=== PATIENT | female | born 1980 | race Two or more races ===

== ENCOUNTER 2020-05-23 12:10 | Emergency (ER) | payer BC, MEDICAID ==
[~2020-05-23] VITALS: Ht 170.2 cm; Wt 90.7 kg
[2020-05-23 12:21] VITALS: BP 139/83
== END 2020-05-23 13:32 | disposition home or self-care (01) ==
LOC: ER 12:10
DX: F41.1 Generalized anxiety disorder (principal); F31.9 Bipolar disorder, unspecified

== ENCOUNTER 2023-01-28 18:14 | Emergency (ER) | payer BC ==
[~2023-01-28] VITALS: Ht 170.2 cm; Wt 90.5 kg
[2023-01-28 20:47] VITALS: BP 142/87
== END 2023-01-28 20:49 | disposition home or self-care (01) ==
LOC: ER 18:14
DX: M79.642 Pain in left hand (principal); F41.9 Anxiety disorder, unspecified; F32.9 Major depressive disorder, single episode, unspecified; Z98.51 Tubal ligation status; X58.XXXA Exposure to other specified factors, initial encounter; Y93.89 Activity, other specified; Y92.89 Other specified places as the place of occurrence of the external cause; Y99.8 Other external cause status
CPT/HCPCS: 29125; 73130

== ENCOUNTER 2023-09-06 12:09 | Emergency (ER) | payer BC ==
[~2023-09-06] VITALS: Ht 170.2 cm; Wt 89.0 kg
[2023-09-06 15:24] VITALS: BP 122/85; PULSE 86; RESP 18; O2SAT 96
== END 2023-09-06 15:33 | disposition home or self-care (01) ==
LOC: ER 12:09
DX: R13.10 Dysphagia, unspecified (principal); F17.210 Nicotine dependence, cigarettes, uncomplicated; E78.5 Hyperlipidemia, unspecified; Z98.51 Tubal ligation status